=== PATIENT | male | born 1965 | race Caucasian/White ===

== ENCOUNTER 2022-02-09 10:00 | Inpatient (IN) | payer OTHER, SELFPAY ==
--- NOTE | 2022-02-09 | ECG_ITS ---
Test Reason : med clearance Blood Pressure : / mmHG Vent. Rate : 053 BPM Atrial Rate : 053 BPM P-R Int : 142 ms QRS Dur : 084 ms QT Int : 430 ms P-R-T Axes : 070 082 077 degrees QTc Int : 403 ms Sinus bradycardia Otherwise normal ECG No previous ECGs available Referred By: Vilma Cobb Electronically Signed By:YUMIKO RAY
--- NOTE | 2022-02-09 10:03 | ED_ITS ---
HPI - Psych General Chief Complaint: Psychiatric Symptoms Stated Complaint: STATEMENTS OF HI FROM SNF PER EMS Time Seen by Provider: 02/09/22 10:03 Source: patient Mode of arrival: EMS Limitations: no limitations History of Present Illness HPI Narrative: 56 yo male states he has schizophrenia and depression not on meds for unknown amount of time, he is homeless. Went to [facility] today stating he is HI - because the government wants him to be. He states he needs some help with his mental health MD complaint: feels depressed, homicidal ideation and anxiety Onset (ago): week(s) Duration: getting worse History of same: Yes Relieving factors: none Context: not taking psychiatric medications Associated psychiatric symptoms: depression and homicidal ideation Associated symptoms: denies other symptoms Treatments prior to arrival: none Related Data Home Medications Medication Instructions Recorded Confirmed gabapentin 600 mg tablet 1 tab PO TID 02/09/22 02/09/22 hydroxyzine HCl 50 mg tablet 1 tab PO BID 02/09/22 02/09/22 Allergies Allergy/AdvReac Type Severity Reaction Status Date / Time No Known Allergies Allergy Verified 02/09/22 10:47 Review of Systems Review of Systems: Constitutional : No Fever, No Chills ENT/Mouth : No Ear Pain, No Nasal Congestion, No sore throat Eyes: No Eye Pain, No Swelling, No Redness Cardiovascular : No Chest Pain, No SOB Respiratory : No Cough, No Sputum, No Dyspnea Gastrointestinal : No Nausea, No Vomiting, No Diarrhea, No Hematochezia, No Melena Genitourinary : No Dysuria, No Urinary Frequency, No Hematuria Musculoskeletal : No Myalgias Skin : No Skin Lesions, No rash Neuro : No Weakness, No Numbness, No Paresthesias, No Dizziness, No Headache Psych : positive Anxiety, positive Depression, no SI pos HI Heme/Lymph: No Lymphadenopathy Endocrine : No Polyuria, No Polydipsia All other systems reviewed and are negative [facility] Past Medical History Attestation statement: The following information was validated with the patient. Medical History Depression Schizophrenia Social History Social History Housing: Homeless Patient Tobacco Use Status: Current someday Tobacco user Substance Use Type: Marijuana Advance Directives: No Advance Directives Information Provided: No Physical Exam Vital Signs: Vital Signs: Last Vital Signs Temp 97.9 F 02/09/22 11:19 Pulse 56 02/09/22 11:19 Resp 16 02/09/22 11:19 BP 123/72 02/09/22 11:19 Pulse Ox 96 02/09/22 11:19 O2 Del Method 02/09/22 11:19 BMI result Body Mass Index 24.3 Appearance: Alert. Oriented X3. No acute distress. talking in circles about the government wanting him to kill people Eyes: Pupils equal, round and reactive to light. ENT: Pharynx normal. Neck: Normal inspection. Neck supple. CVS: Normal heart rate and rhythm. Pulses normal. Respiratory: No respiratory distress. Breath sounds normal. Abdomen: Soft and nontender. Skin: Skin warm and dry. Normal skin color. Normal skin turgor. Extremities: No lower extremity edema. No calf ttp Neuro: Oriented X 3. No motor deficit. No sensory deficit. CN2-12 intact. Course Course Course Narrative: Physician observation started at 425pm Patient placed in physician observation because the patient needed more time for placement he is a [facility] S12 bed search. At the time observation was started the patient's vitals were stable, patient is alert and oriented but slightly anxious, Neuro: nonfocal, CV RRR, Lungs clear MDM - Psych MDM Narrative Medical decision making narrative: 56 yo male with depression and schizophrenia here with c/o HI - mentions the government is out to get him. At this time will need labs, [facility] consult Lab Data Result diagrams: 02/09/22 12:57 02/09/22 12:57 Labs: Lab Results 02/09/22 02/09/22 02/09/22 Range/Units 11:50 11:50 12:57 WBC 10.9 H (4.8-10.8) X10*3/uL RBC 5.25 (4.60-5.80) X10*6/uL Hgb 15.9 (14.0-18.0) g/dl Hct 47.4 (42.0-52.0) % MCV 90.3 (80.0-98.0) fL MCH 30.3 (27.0-33.0) pg MCHC 33.5 (31.0-36.0) g/dl RDW 14.1 (11.0-16.0) % Plt Count 332 (160-400) X10*3/uL MPV 9.1 L (9.4-12.4) fL Immature Gran % (Auto) 0.4 (0.0-0.4) % Neut % (Auto) 60.3 (45-73) % Lymph % (Auto) 30.8 (20-40) % Maries % (Auto) 6.6 (2-11) % Eos % (Auto) 1.3 (0-4) % Baso % (Auto) 0.6 (0-2) % Lymph # (Auto) 3.4 (1.2-4.9) X10*3/uL Maries # (Auto) 0.7 (0.1-1.2) X10*3/uL Eos # (Auto) 0.1 (0.0-0.4) X10*3/uL Baso # (Auto) 0.1 (0.0-0.2) X10*3/uL Abs Immat Gran (auto) 0.04 H (0.00-0.03) X10*3/uL Absolute Neuts (auto) 6.6 (2.0-8.3) x10*3/uL Absolute Nucleated RBC 0.000 (0.0-0.012) X10*3/uL Nucleated RBC % (auto) 0.0 (0.0-0.2) /100WBC Sodium (135-145) mmol/L Potassium (3.3-5.1) mmol/L Chloride (96-108) mmol/L Carbon Dioxide (22-29) mmol/L Anion Gap (12-20) BUN (9-16) mg/dL Creatinine (0.5-1.4) mg/dL Estim Creat Clear Calc Estimated GFR Random Glucose (60-115) mg/dL Calcium (8.4-10.2) mg/dL Total Bilirubin (0.0-1.0) mg/dL Direct Bilirubin (0.0-0.5) mg/dL AST (5-37) U/L ALT (0-40) U/L Alkaline Phosphatase (39-117) U/L Total Protein (6.5-8.0) g/dL Albumin (3.5-5.0) g/dL Urine Opiates Screen Not Detected (Not Detect) Urine Fentanyl Screen Not Detected (Not Detect) Ur Barbiturates Screen Not Detected (Not Detect) Ur Phencyclidine Scrn Not Detected (Not Detect) Ur Amphetamines Screen Not Detected (Not Detect) U Benzodiazepines Scrn Not Detected (Not Detect) Urine Cocaine Screen Not Detected (Not Detect) U Marijuana (THC) Screen POSITIVE H (Not Detect) Ethyl Alcohol mg/dL COVID-19 (MAXIME) Negative (Negative) COVID-19 Clin Com See Note 02/09/22 Range/Units 12:57 WBC (4.8-10.8) X10*3/uL RBC (4.60-5.80) X10*6/uL Hgb (14.0-18.0) g/dl Hct (42.0-52.0) % MCV (80.0-98.0) fL MCH (27.0-33.0) pg MCHC (31.0-36.0) g/dl RDW (11.0-16.0) % Plt Count (160-400) X10*3/uL MPV (9.4-12.4) fL Immature Gran % (Auto) (0.0-0.4) % Neut % (Auto) (45-73) % Lymph % (Auto) (20-40) % Maries % (Auto) (2-11) % Eos % (Auto) (0-4) % Baso % (Auto) (0-2) % Lymph # (Auto) (1.2-4.9) X10*3/uL Maries # (Auto) (0.1-1.2) X10*3/uL Eos # (Auto) (0.0-0.4) X10*3/uL Baso # (Auto) (0.0-0.2) X10*3/uL Abs Immat Gran (auto) (0.00-0.03) X10*3/uL Absolute Neuts (auto) (2.0-8.3) x10*3/uL Absolute Nucleated RBC (0.0-0.012) X10*3/uL Nucleated RBC % (auto) (0.0-0.2) /100WBC Sodium 140 (135-145) mmol/L Potassium 4.3 (3.3-5.1) mmol/L Chloride 106 (96-108) mmol/L Carbon Dioxide 26 (22-29) mmol/L Anion Gap 12 (12-20) BUN 12 (9-16) mg/dL Creatinine 0.71 (0.5-1.4) mg/dL Estim Creat Clear Calc 116.1 Estimated GFR > 60 Random Glucose 91 (60-115) mg/dL Calcium 9.3 (8.4-10.2) mg/dL Total Bilirubin 0.6 (0.0-1.0) mg/dL Direct Bilirubin 0.2 (0.0-0.5) mg/dL AST 15 (5-37) U/L ALT 13 (0-40) U/L Alkaline Phosphatase 61 (39-117) U/L Total Protein 6.4 L (6.5-8.0) g/dL Albumin 4.0 (3.5-5.0) g/dL Urine Opiates Screen (Not Detect) Urine Fentanyl Screen (Not Detect) Ur Barbiturates Screen (Not Detect) Ur Phencyclidine Scrn (Not Detect) Ur Amphetamines Screen (Not Detect) U Benzodiazepines Scrn (Not Detect) Urine Cocaine Screen (Not Detect) U Marijuana (THC) Screen (Not Detect) Ethyl Alcohol < 10 mg/dL COVID-19 (MAXIME) (Negative) COVID-19 Clin Com Discharge Plan Discharge Clinical Impression: Homicidal ideation Patient Disposition: Still a Patient Prescriptions: No Action gabapentin 600 mg tablet 1 tab PO TID hydroxyzine HCl 50 mg tablet 1 tab PO BID
[2022-02-09 11:19] VITALS: BP 123/72; BP 138/80; PULSE 56; PULSE 74; RESP 16; TEMP 36.6; O2SAT 96; O2SAT 99; BMI 24.3
[2022-02-09 12:16] LABS: Amphetamine Screen Urine Not Detected (Not Detect); Barbiturates, Urine Not Detected (Not Detect); Benzodiazepines Screen Urine Not Detected (Not Detect); Cannabinoid Screen Urine POSITIVE (Not Detect); Cocaine Screen Urine Not Detected (Not Detect); Fentanyl, urine Not Detected (Not Detect); Opiate Screen Urine Not Detected (Not Detect); Phencyclidine Screen Urine Not Detected (Not Detect)
[2022-02-09 12:18] LABS: COVID-19 Test Negative (Negative)
[2022-02-09 13:00] LABS: MANUAL DIFF FLAG NO
[2022-02-09 13:10] LABS: Basophils Absolute Auto 0.1 X10*3/uL (0.0-0.2); Basophils Percent Auto 0.6 % (0-2); Eosinophils Absolute Auto 0.1 X10*3/uL (0.0-0.4); Eosinophils Percent Auto 1.3 % (0-4); Hematocrit 47.4 % (42.0-52.0); Hemoglobin 15.9 g/dl (14.0-18.0); Imm Gran Abs Auto 0.04 X10*3/uL (0.00-0.03); Imm Gran Pct Auto 0.4 % (0.0-0.4); Lymphocytes Absolute Auto 3.4 X10*3/uL (1.2-4.9); Lymphocytes Percent Auto 30.8 % (20-40); Mean Corpuscular HGB Conc 33.5 g/dl (31.0-36.0); Mean Corpuscular Hemoglobin 30.3 pg (27.0-33.0); Mean Corpuscular Volume 90.3 fL (80.0-98.0); Mean Platelet Volume 9.1 fL (9.4-12.4); Monocytes Absolute Auto 0.7 X10*3/uL (0.1-1.2); Monocytes Percent Auto 6.6 % (2-11); Neutrophils Absolute Auto 6.6 x10*3/uL (2.0-8.3); Neutrophils Percent Auto 60.3 % (45-73); Platelet Count 332 X10*3/uL (160-400); Red Blood Count 5.25 X10*6/uL (4.60-5.80); Red Cell Distribution Width 14.1 % (11.0-16.0); White Blood Count 10.9 X10*3/uL (4.8-10.8)
[2022-02-09 13:20] LABS: Alanine Aminotransferase 13 U/L (0-40); Alkaline Phosphatase 61 U/L (39-117); Anion Gap 12 (12-20); Aspartate Amino Transferase 15 U/L (5-37); Bilirubin Direct 0.2 mg/dL (0.0-0.5); Bilirubin Total 0.6 mg/dL (0.0-1.0); Blood Urea Nitrogen 12 mg/dL (9-16); Calcium 9.3 mg/dL (8.4-10.2); Carbon Dioxide 26 mmol/L (22-29); Chloride 106 mmol/L (96-108); Creatinine Clr Calc Pharmacy 116.1; Estimated Glomerular Filt Rate > 60; Ethanol < 10 mg/dL; Glucose Random 91 mg/dL (60-115); Potassium 4.3 mmol/L (3.3-5.1); Sodium 140 mmol/L (135-145); Total Protein 6.4 g/dL (6.5-8.0)
--- NOTE | 2022-02-09 14:13 | PC.NURSE ---
MONET met with patient who was laying down upon initial interaction. Patient sat up and engaged in conversation with MONET. Patient stated he was very angry, just angry and he wants to leave this country . MONET provided patient with packet that included daily chronicle, word search, coloring pages, and also relaxation exercises. MONET discussed leaves on a stream and coping skills for anxiety with patient. Patient accepted packet and appeared to enjoy conversation. MONET asked patient if there was anything else he needed to which he replied no. Patient stated he would look at worksheets after lunch.
[2022-02-09] MEDS: Gabapentin 600 MG TABLET PO ×2 (15:11→19:59)
[2022-02-09] MEDS: Nicotine 21 MG PATCH.TD24 TRANSDERMA (15:24)
[2022-02-09] MEDS: hydrOXYzine HCL 50 MG TABLET PO (19:59)
[2022-02-09 23:16] VITALS: BMI 20.8
[2022-02-09 23:17] VITALS: BP 136/72; PULSE 56; TEMP 36.7; O2SAT 96
[2022-02-09 23:47] VITALS: BMI 20.7
--- NOTE | 2022-02-10 00:32 | PC.ADMIT ---
Pt is a 56 year old male admitted on CV for increasing HI. Pt states, the government is trying to make me hurt someone, people are trying to poison me . Pt is alert and oriented X3, Covid negative, tox screen positive for THC. Pt denies SI/HI/VH at the moment. Pt had been non-medication compliant for some time. Pt has poor eye contact though pleasant and cooperative. Speech is coarse and Pt drifts off topic at times. Pt endorses anxiety and depression. Pt is paranoid about the government and states, 'wants to leave the country . Pt is homeless and seeks housing. Admission orders obtained.
[2022-02-10 06:00] VITALS: BP 131/78; PULSE 54; RESP 18; TEMP 36.4; O2SAT 96
[2022-02-10 08:59] LABS: Alanine Aminotransferase 12 U/L (0-40); Albumin Level 4.2 g/dL (3.5-5.0); Alkaline Phosphatase 64 U/L (39-117); Anion Gap 14 (12-20); Aspartate Amino Transferase 13 U/L (5-37); Bilirubin Total 0.3 mg/dL (0.0-1.0); Blood Urea Nitrogen 9 mg/dL (9-16); Calcium 9.6 mg/dL (8.4-10.2); Carbon Dioxide 27 mmol/L (22-29); Chloride 105 mmol/L (96-108); Cholesterol 170 mg/dL; Creatinine Clr Calc Pharmacy 92.1; Estimated Glomerular Filt Rate > 60; Glucose Fasting 110 mg/dL (60-99); HDL Cholesterol 40 mg/dL; LDL Cholesterol Calculated 111 mg/dl; Potassium 4.7 mmol/L (3.3-5.1); Sodium 141 mmol/L (135-145); Total Protein 6.7 g/dL (6.5-8.0); Triglycerides 96 mg/dL
[2022-02-10 09:20] LABS: Thyroid Stimulating Hormone 1.02 uIU/mL (0.32-4.0)
[2022-02-10 09:37] LABS: Folate 14.8 ng/mL (> or = 4.0); Vitamin B12 394 pg/mL (200-900)
--- NOTE | 2022-02-10 09:51 | HO.PSYADMNOT ---
HPI Date of Service: 02/10/22 Chief Complaint: PARANOIA Agitation Sources of Information: patient interviewed, chart reviewed and crisis/core team assessment reviewed HPI Subjective Notes: Hewitt Warning and Conditional Voluntary Guardianship: No Narrative: The patient allegedly had initially gone to [facility] and then was reportedly sent to the [facility]. He presented to the [facility] with reported homicidal thoughts reportedly no clear plan related to multiple paranoid concerns about the government and other people and that somehow he was being harmed. He has had concerns reportedly about being poisoned things injected into his body. The patient has reportedly been on hydroxyzine 50 mg twice a day as needed for anxiety gabapentin 600 t.i.d. reportedly for back pain. He states he is treated at [facility] he reportedly has not been on any antipsychotic medication for an extended period of time and none is on med reconciliation. Patient states he does not take any crazy medication. The patient gives a chaotic and disorganized history he reportedly has been diagnosed with the schizophrenia he states he is homeless and has been going from 1 place to another including reportedly [facility] and [facility]. He states he cannot take it anymore rambling and rapid discourse about somehow people harming him in different ways doing things to his body and has felt he may need to protect himself and reportedly made statements that someone the government is trying to make him hurt someone. Patient denied a history of violence. Past Psychiatric History: History of multiple reported hospitalizations for paranoia questionable history of jeremy and psychosis. Unclear regarding treatment. Medical Evaluation Reviewed: Yes Patient does have reportedly past head injuries. Complains of being damage to his private parts and testicles but cannot give any coherent history or symptoms. Was reportedly examined in the emergency room and nothing noted [facility], [facility] Medical History (Updated 02/10/22 @ 17:25 by Enrike Torres MD) Depression Schizophrenia Narrative: Patient states history past head injuries chronic back pain Family History: Unknown at this time Social History: Reportedly grew up in [place] he states he does have disability lives in different shelters and does have food stamps. He states he is currently homeless does use [facility] Patient does have sister involved Michelle telephone [phone] his mother Allison [phone] Substance History: Reportedly regularly taking marijuana past history opiate use reportedly last 2018 reported intermittent occasional use of cocaine Trauma History: Reported history of physical trauma Diagnostics Vital Signs (24Hr): Vital Signs - 24 hr 02/09/22 11:19 02/09/22 23:17 Temperature 97.9 F 98.1 F Pulse Rate 56 56 Respiratory Rate 16 Blood Pressure 123/72 136/72 Pulse Oximetry 96 96 Oxygen Delivery Method Room Air Room Air BMI result Body Mass Index 20.7 Labs Results: 02/09/22 12:57 02/10/22 08:32 Labs: Laboratory Results - last 48 hr 02/09/22 02/09/22 02/09/22 11:50 11:50 12:57 WBC 10.9 H RBC 5.25 Hgb 15.9 Hct 47.4 MCV 90.3 MCH 30.3 MCHC 33.5 RDW 14.1 Plt Count 332 MPV 9.1 L Immature Gran % (Auto) 0.4 Neut % (Auto) 60.3 Lymph % (Auto) 30.8 Valley % (Auto) 6.6 Eos % (Auto) 1.3 Baso % (Auto) 0.6 Lymph # (Auto) 3.4 Valley # (Auto) 0.7 Eos # (Auto) 0.1 Baso # (Auto) 0.1 Abs Immat Gran (auto) 0.04 H Absolute Neuts (auto) 6.6 Absolute Nucleated RBC 0.000 Nucleated RBC % (auto) 0.0 Sodium Potassium Chloride Carbon Dioxide Anion Gap BUN Creatinine Estim Creat Clear Calc Estimated GFR Random Glucose Fasting Glucose Calcium Total Bilirubin Direct Bilirubin AST ALT Alkaline Phosphatase Total Protein Albumin Triglycerides Cholesterol LDL Cholesterol, Calc HDL Cholesterol Vitamin B12 Folate TSH Urine Opiates Screen Not Detected Urine Fentanyl Screen Not Detected Ur Barbiturates Screen Not Detected Ur Phencyclidine Scrn Not Detected Ur Amphetamines Screen Not Detected U Benzodiazepines Scrn Not Detected Urine Cocaine Screen Not Detected U Marijuana (THC) Screen POSITIVE H Ethyl Alcohol COVID-19 (MAXIME) Negative COVID-19 Clin Com See Note 02/09/22 02/10/22 02/10/22 12:57 08:32 08:32 WBC RBC Hgb Hct MCV MCH MCHC RDW Plt Count MPV Immature Gran % (Auto) Neut % (Auto) Lymph % (Auto) Valley % (Auto) Eos % (Auto) Baso % (Auto) Lymph # (Auto) Valley # (Auto) Eos # (Auto) Baso # (Auto) Abs Immat Gran (auto) Absolute Neuts (auto) Absolute Nucleated RBC Nucleated RBC % (auto) Sodium 140 141 Potassium 4.3 4.7 Chloride 106 105 Carbon Dioxide 26 27 Anion Gap 12 14 BUN 12 9 Creatinine 0.71 0.76 Estim Creat Clear Calc 116.1 92.1 Estimated GFR > 60 > 60 Random Glucose 91 Fasting Glucose 110 H Calcium 9.3 9.6 Total Bilirubin 0.6 0.3 Direct Bilirubin 0.2 AST 15 13 ALT 13 12 Alkaline Phosphatase 61 64 Total Protein 6.4 L 6.7 Albumin 4.0 4.2 Triglycerides 96 Cholesterol 170 LDL Cholesterol, Calc 111 HDL Cholesterol 40 Vitamin B12 394 Folate 14.8 TSH 1.02 Urine Opiates Screen Urine Fentanyl Screen Ur Barbiturates Screen Ur Phencyclidine Scrn Ur Amphetamines Screen U Benzodiazepines Scrn Urine Cocaine Screen U Marijuana (THC) Screen Ethyl Alcohol < 10 COVID-19 (MAXIME) COVID-19 Clin Com Meds/Allergies Meds Home Medications Medication Instructions Recorded Confirmed Type gabapentin 600 mg tablet 1 tab PO TID 02/09/22 02/09/22 History hydroxyzine HCl 50 mg tablet 1 tab PO BID 02/09/22 02/09/22 History Allergies Allergies Allergy/AdvReac Type Severity Reaction Status Date / Time No Known Allergies Allergy Verified 02/09/22 10:47 Mental Status Exam Mental Status Exam Patient Appearance: Disheveled Patient Orientation: Person and Situation Level of Consciousness: Awake Patient Behavior: Talkative, Suspicious, Swearing and Anxious Mood Description: Anxious, Labile, Angry and Apprehensive Affect Description: Anxious, Labile and Apprehensive Patient Cognition Impaired: Yes Ability to Follow Directions: Fair Speech Pattern: Rambling and Excessive Delusions: Paranoid Ideation and Bizarre (Bizarre delusions somatic bizarre concerns) Thought Process: Rumination Thought Content: positive for Flight of Ideas, positive for Hypochondriasis, negative for Suicidal Ideation or positive for Homicidal Ideation (Thoughts he might after protect himself denied current plan or intent to harm anyone) Abnormal Motor Activity Signs and Symptoms: Agitation Judgement: Poor Judgement and Insight: Preoccupation with conspiracy of Jews gays being poisoned I do not take any crazy medication Assessment & Plan Assessment & Plan (1) Schizoaffective disorder, bipolar type: Status: Acute Code(s): F25.0 - Schizoaffective disorder, bipolar type Plan Try and develop therapeutic relationship assess safety hewitt warning given. Patient may need treatment order he apparently is chronically psychotic but has been increasingly paranoid psychotic agitated need to SF safety to himself and others Patient educated on: diagnosis and medication risk/benefits Informed Consent: further education needed Reason for continued inpatient stay Substantial Risk for: harm to others, inability to function, rapid decompensation and med/psych decompensation
[2022-02-10] MEDS: Gabapentin 600 MG TABLET PO ×3 (10:23→22:20)
[2022-02-10] MEDS: Acetaminophen 325 MG TABLET 650 MG PO ×2 (10:31→22:30)
[2022-02-10] MEDS: Nicotine 21 MG PATCH.TD24 TRANSDERMA (11:20)
[2022-02-10] MEDS: hydrOXYzine HCL 25 MG TABLET PO (14:32)
--- NOTE | 2022-02-10 15:08 | MHC.CLN ---
NUTRITION PATIENT WITH NORMAL BMI=20.7. 89% IBW. STAFF REPORTS THAT PATIENT IS EATING WELL. NO ADDITIONAL NUTRITION INTERVENTIONS.
[2022-02-10 22:17] VITALS: BP 153/81; PULSE 60; RESP 18; TEMP 36.2; O2SAT 97
[2022-02-11 06:00] VITALS: BP 106/70; PULSE 66; RESP 16; TEMP 36.6; O2SAT 97
[2022-02-11 07:00] VITALS: BMI 21.4
[2022-02-11] MEDS: Gabapentin 600 MG TABLET PO ×3 (08:58→21:05)
[2022-02-11] MEDS: Acetaminophen 325 MG TABLET 650 MG PO ×2 (08:58→17:07)
[2022-02-11] MEDS: hydrOXYzine HCL 25 MG TABLET PO ×2 (09:10→15:57)
[2022-02-11] MEDS: Nicotine 21 MG PATCH.TD24 TRANSDERMA (10:04)
--- NOTE | 2022-02-11 14:54 | P.PNPSI_ITS ---
Subjective Subjective Date of Service: 02/11/22 Reason For Visit: PARANOIA Agitation Interim History: calm, cooperative. makes some paranoid references. declines neuroleptics. ultimately somewhat irritable and ends interview unilaterally by walking out of the interview room. MD informs pt MD plans to Rx meds and pt may take them or not. pt acknowledges MDs statement. pt states he is working with SW on housing. Mental Status Exam Mental Status Exam Narrative: adequately dressed and groomed. cooperative. no PMA/PMR. speech nml in rate, amount, tone, latency. soft-spoken. thoughts moderately disorganized and expressive of paranoid delusions. affect constricted, normo-intense, non- labile. mood not assessed. no SI/HI/AVH expressed. Diagnostics Vital Signs (24Hr): Vital Signs - 24 hr 02/10/22 22:17 02/11/22 06:00 Temperature 97.2 F 97.8 F Pulse Rate 60 66 Respiratory Rate 18 16 Blood Pressure 153/81 H 106/70 Pulse Oximetry 97 97 Oxygen Delivery Method Room Air Room Air BMI result Body Mass Index 20.7 Labs Results: 02/09/22 12:57 02/10/22 08:32 Labs: Laboratory Results - last 48 hr 02/10/22 02/10/22 08:32 08:32 Sodium 141 Potassium 4.7 Chloride 105 Carbon Dioxide 27 Anion Gap 14 BUN 9 Creatinine 0.76 Estim Creat Clear Calc 92.1 Estimated GFR > 60 Fasting Glucose 110 H Calcium 9.6 Total Bilirubin 0.3 AST 13 ALT 12 Alkaline Phosphatase 64 Total Protein 6.7 Albumin 4.2 Triglycerides 96 Cholesterol 170 LDL Cholesterol, Calc 111 HDL Cholesterol 40 Vitamin B12 394 Folate 14.8 TSH 1.02 Medications Medications Current Medications Acetaminophen (Acetaminophen 325 Mg Tablet) 650 mg PO Q6H PRN PRN Reason: Headache/Pain Mild Scale (1-3) Last Admin: 02/11/22 08:58 Dose: 650 mg Al Hydroxide/Mg Hydroxide (Magnesium Hydrox/Alum Hydrox 30 Ml Oral.Susp) 30 ml PO Q6H PRN PRN Reason: Heartburn/Nausea Gabapentin (Gabapentin 600 Mg Tablet) 600 mg PO TID JESUS Last Admin: 02/11/22 08:58 Dose: 600 mg Hydroxyzine HCl (Hydroxyzine Hcl 25 Mg Tablet) 25 mg PO Q6H PRN PRN Reason: anxiety/restlessness Last Admin: 02/11/22 09:10 Dose: 25 mg Magnesium Hydroxide (Milk Of Magnesia 30 Ml Oral.Susp) 30 ml PO DAILY PRN PRN Reason: Constipation Nicotine (Nicotine 21 Mg Patch.Td24) 21 mg TRANSDERMA DAILY JESUS Last Admin: 02/11/22 10:04 Dose: 21 mg Risperidone (Risperidone 0.5 Mg Tablet) 0.5 mg PO Q4H PRN PRN Reason: Psychosis Trazodone HCl (Trazodone Hcl 50 Mg Tablet) 50 mg PO BEDTIME PRN PRN Reason: Insomnia Allergies Allergies Allergy/AdvReac Type Severity Reaction Status Date / Time No Known Allergies Allergy Verified 02/09/22 10:47 Assessment & Plan Assessment & Plan (1) Schizoaffective disorder, bipolar type: Status: Acute Code(s): F25.0 - Schizoaffective disorder, bipolar type Plan Try and develop therapeutic relationship assess safety lamas warning given. Patient may need treatment order he apparently is chronically psychotic but has been increasingly paranoid psychotic agitated need to SF safety to himself and others. 02/11: start scheduled abilify 5 mg daily. pt likely to decline, but medication should be offered. I spent ___25___ minutes with the patient and/or on the patient floor today, greater than?50% of which was spent counseling/coordinating care. Reason for contiued inpatient stay Substantial Risk for: harm to others and inability to function
[2022-02-11] MEDS: risperiDONE 0.5 MG TABLET PO (17:08)
[2022-02-11 21:09] VITALS: BP 129/73; PULSE 52; RESP 18; TEMP 36.1; O2SAT 97
[2022-02-12] MEDS: Nicotine 21 MG PATCH.TD24 TRANSDERMA (09:09)
[2022-02-12] MEDS: Gabapentin 600 MG TABLET PO ×3 (09:10→21:18)
[2022-02-12 10:24] VITALS: BP 122/68; PULSE 55; TEMP 36.6; O2SAT 97
[2022-02-12] MEDS: hydrOXYzine HCL 25 MG TABLET PO (14:42)
--- NOTE | 2022-02-12 17:25 | P.PNPSI_ITS ---
Subjective Subjective Date of Service: 02/12/22 Reason For Visit: PARANOIA Agitation Subjective Notes: Hewitt Warning Interim History: I spoke with pt's team and evaluated him this evening. He is disorganized, making bizarre statements, paranoid. Says he is very upset, difficult to follow him in conversation, flight of ideas. Makes statements about having cavities fixed, I do not want to stay in this country, wants to go back to [place], somewhere in [place], they dont care about me or my yazdanism. Says his anxiety is high, he is very upset, disgusted. Identifies being upset with the whole government, whole situation, then points to T/W and says you fund those fucking guys, the gays Wilder Dukes, starts talking about [employer], again points at T/W. Also says Im gonna kill someone, You are extorting people, If I see them around, im gonna slice their necks, when asked who he is talking about he says Brett Castano and their kids. Pt unable to say if he feels safe. Refuses medication. Medication Compliance: No Attending Groups: No Review of Systems Acute medical concerns: No Medical Review of Systems: unchanged Mental Status Exam Mental Status Exam Narrative: adequately dressed and groomed.? cooperative.? no PMA/PMR.? speech nml in rate, amount, tone, latency.? soft-spoken.? thoughts moderately disorganized and expressive of paranoid delusions.? affect constricted, normo-intense, non- labile.? mood not assessed.? no SI/HI/AVH expressed. Diagnostics Vital Signs (24Hr): Vital Signs - 24 hr 02/11/22 21:09 02/12/22 10:24 Temperature 97.0 F 97.8 F Pulse Rate 52 55 Respiratory Rate 18 Blood Pressure 129/73 122/68 Pulse Oximetry 97 97 Oxygen Delivery Method Room Air Room Air BMI result Body Mass Index 21.4 Labs Results: 02/09/22 12:57 02/10/22 08:32 Medications Medications Current Medications Acetaminophen (Acetaminophen 325 Mg Tablet) 650 mg PO Q6H PRN PRN Reason: Headache/Pain Mild Scale (1-3) Last Admin: 02/11/22 17:07 Dose: 650 mg Al Hydroxide/Mg Hydroxide (Magnesium Hydrox/Alum Hydrox 30 Ml Oral.Susp) 30 ml PO Q6H PRN PRN Reason: Heartburn/Nausea Aripiprazole (Aripiprazole 5 Mg Tablet) 5 mg PO DAILY [facility] Last Admin: 02/12/22 09:13 Dose: Not Given Gabapentin (Gabapentin 600 Mg Tablet) 600 mg PO TID [facility] Last Admin: 02/12/22 14:42 Dose: 600 mg Hydroxyzine HCl (Hydroxyzine Hcl 25 Mg Tablet) 25 mg PO Q6H PRN PRN Reason: anxiety/restlessness Last Admin: 02/12/22 14:42 Dose: 25 mg Magnesium Hydroxide (Milk Of Magnesia 30 Ml Oral.Susp) 30 ml PO DAILY PRN PRN Reason: Constipation Nicotine (Nicotine 21 Mg Patch.Td24) 21 mg TRANSDERMA DAILY [facility] Last Admin: 02/12/22 09:09 Dose: 21 mg Risperidone (Risperidone 0.5 Mg Tablet) 0.5 mg PO Q4H PRN PRN Reason: Psychosis Last Admin: 02/11/22 17:08 Dose: 0.5 mg Trazodone HCl (Trazodone Hcl 50 Mg Tablet) 50 mg PO BEDTIME PRN PRN Reason: Insomnia Allergies Allergies Allergy/AdvReac Type Severity Reaction Status Date / Time No Known Allergies Allergy Verified 02/09/22 10:47 Assessment & Plan Assessment & Plan (1) Schizoaffective disorder, bipolar type: Status: Acute Code(s): F25.0 - Schizoaffective disorder, bipolar type Plan Try and develop therapeutic relationship assess safety hewitt warning given. Patient may need treatment order he apparently is chronically psychotic but has been increasingly paranoid psychotic agitated need to SF safety to himself and others. 02/11: start scheduled abilify 5 mg daily. pt likely to decline, but medication should be offered. 02/12: Pt med non-adherent, making verbal threats, HI threats, poor insight I spent minutes with the patient and/or on the patient floor today, greater than?50% of which was spent counseling/coordinating care. Patient educated on: diagnosis, medication risk/benefits and therapeutic strategies Reason for contiued inpatient stay Substantial Risk for: harm to others, rapid decompensation and med/psych decompensation
[2022-02-12 21:20] VITALS: BP 128/83; PULSE 85; RESP 18; TEMP 36.6; O2SAT 96
[2022-02-13] MEDS: Nicotine 21 MG PATCH.TD24 TRANSDERMA (08:10)
[2022-02-13] MEDS: Acetaminophen 325 MG TABLET 650 MG PO (08:11)
[2022-02-13] MEDS: Gabapentin 600 MG TABLET PO ×3 (08:11→21:07)
--- NOTE | 2022-02-13 09:28 | HO.PSYCHPN ---
Subjective Subjective Date of Service: 02/13/22 Reason For Visit: PARANOIA Agitation Subjective Notes: Conditional Voluntary Healthcare Proxy: No Guardianship: No Interim History: Patient was seen and discussed in rounds today. Records and plans were reviewed. He has been pleasant but continues to be tangential and having self dialogue. Anxious at times. Possibly delusional. No complaints or side effects. Eating and sleeping adequately. No changes were made today Medication Compliance: Yes Side effects from medications: No Attending Groups: Yes Review of Systems Review of Systems Yes all other systems are reviewed and are negative Mental Status Exam Mental Status Exam Narrative: In today's visit he is alert, oriented and pleasant. Normal speech. Little eye contact. Affect is constricted. Some paranoia is reported and present. No auditory or visual hallucinations. No suicidal or homicidal ideations today. He had expressed these in the past. Cognitively he is tangential. Insight is minimal. Judgment is mostly intact Diagnostics Vital Signs (24Hr): Vital Signs - 24 hr 02/12/22 10:24 02/12/22 21:20 Temperature 97.8 F 97.9 F Pulse Rate 55 85 Respiratory Rate 18 Blood Pressure 122/68 128/83 Pulse Oximetry 97 96 Oxygen Delivery Method Room Air Room Air BMI result Body Mass Index 21.4 Labs Results: 02/09/22 12:57 02/10/22 08:32 Medications Medications Current Medications Acetaminophen (Acetaminophen 325 Mg Tablet) 650 mg PO Q6H PRN PRN Reason: Headache/Pain Mild Scale (1-3) Last Admin: 02/13/22 08:11 Dose: 650 mg Al Hydroxide/Mg Hydroxide (Magnesium Hydrox/Alum Hydrox 30 Ml Oral.Susp) 30 ml PO Q6H PRN PRN Reason: Heartburn/Nausea Aripiprazole (Aripiprazole 5 Mg Tablet) 5 mg PO DAILY [facility] Last Admin: 02/13/22 08:12 Dose: Not Given Gabapentin (Gabapentin 600 Mg Tablet) 600 mg PO TID [facility] Last Admin: 02/13/22 08:11 Dose: 600 mg Hydroxyzine HCl (Hydroxyzine Hcl 25 Mg Tablet) 25 mg PO Q6H PRN PRN Reason: anxiety/restlessness Last Admin: 02/12/22 14:42 Dose: 25 mg Magnesium Hydroxide (Milk Of Magnesia 30 Ml Oral.Susp) 30 ml PO DAILY PRN PRN Reason: Constipation Nicotine (Nicotine 21 Mg Patch.Td24) 21 mg TRANSDERMA DAILY [facility] Last Admin: 02/13/22 08:10 Dose: 21 mg Risperidone (Risperidone 0.5 Mg Tablet) 0.5 mg PO Q4H PRN PRN Reason: Psychosis Last Admin: 02/11/22 17:08 Dose: 0.5 mg Trazodone HCl (Trazodone Hcl 50 Mg Tablet) 50 mg PO BEDTIME PRN PRN Reason: Insomnia Allergies Allergies Allergy/AdvReac Type Severity Reaction Status Date / Time No Known Allergies Allergy Verified 02/09/22 10:47 Assessment & Plan Assessment & Plan (1) Schizoaffective disorder, bipolar type: Status: Acute Code(s): F25.0 - Schizoaffective disorder, bipolar type Plan Try and develop therapeutic relationship assess safety lamas warning given. Patient may need treatment order he apparently is chronically psychotic but has been increasingly paranoid psychotic agitated need to SF safety to himself and others. 02/11: start scheduled abilify 5 mg daily. pt likely to decline, but medication should be offered. 02/12: Pt med non-adherent, making verbal threats, HI threats, poor insight 02/13: Continue current regimen and plans I spent minutes with the patient and/or on the patient floor today, greater than?50% of which was spent counseling/coordinating care. Reason for contiued inpatient stay Substantial Risk for: med/psych decompensation
[2022-02-13 10:33] VITALS: BP 123/75; PULSE 59; RESP 14; TEMP 36.2; O2SAT 99
[2022-02-13] MEDS: hydrOXYzine HCL 25 MG TABLET PO (11:24)
[2022-02-13 20:30] VITALS: BP 136/81; PULSE 65; RESP 16; TEMP 36.3; O2SAT 97
--- NOTE | 2022-02-14 08:36 | P.CNHOSGPS_ITS ---
History of Present Illness Data of Consult Service Date: 02/14/22 Requesting physician: Alex Steele Primary Care Provider: Rebeca Hassan NP HPI Scrotal swelling Review of Systems Review of Systems: denies trauma to scrotum Denies scrotal pain denies fever chills PMFSH Medical History Depression Schizophrenia Social History Household Members: None Housing: Homeless Do you presently have visiting nurse or other home services: No Patient Tobacco Use Status: Current everyday Tobacco user Tobacco use type: Cigarette Cigarette Packs Per Day: 1 Cigarettes Per Day: 20.0 Smoked in Last 30 Days: Yes e-Cigarette/Vaping Use: Currently Using Patient Interested in Nicotine Replacement: Yes Patient Given Instructions on How to Stop Smoking: Yes Date Education Initiated: 02/09/22 Second Hand Smoke Exposure: No Substance Use Type: Marijuana Substance Use Frequency: Daily Last Used Substance: Days (ago) Currently Displaying Signs/Symptoms of Drug Intoxication Withdrawal: No Any prior treatment program specific to substance use: No Have you been hit, kicked, punched, or otherwise hurt by someone within the past year? If so, by whom?: No Do you feel safe in your current relationship?: No Current Relationship Is there a partner from a previous relationship who is making you feel unsafe now?: No Are you made to feel afraid or neglected: No Spiritual Healthcare Practices: N/A Pentecostalism Healthcare Practices: N/A Cultural Healthcare Practices: N/A Advance Directives: No Advance Directives Information Provided: No Do you have thoughts of harming others: None Do you have a plan to hurt others: No Plan Recently lost weight without trying: No How much weight loss: Not applicable Eating poorly because of decreased appetite: No Nutrition screen score: 0 Nutrition Risks: No Nutritional Risk Poor oral hygiene: No Sexual orientation: Did not discuss. Meds Allergies Allergy/AdvReac Type Severity Reaction Status Date / Time No Known Allergies Allergy Verified 02/09/22 10:47 Active Medications: Current Medications Acetaminophen (Acetaminophen 325 Mg Tablet) 650 mg PO Q6H PRN PRN Reason: Headache/Pain Mild Scale (1-3) Last Admin: 02/13/22 08:11 Dose: 650 mg Al Hydroxide/Mg Hydroxide (Magnesium Hydrox/Alum Hydrox 30 Ml Oral.Susp) 30 ml PO Q6H PRN PRN Reason: Heartburn/Nausea Aripiprazole (Aripiprazole 5 Mg Tablet) 5 mg PO DAILY [facility] Last Admin: 02/13/22 08:12 Dose: Not Given Gabapentin (Gabapentin 600 Mg Tablet) 600 mg PO TID [facility] Last Admin: 02/13/22 21:07 Dose: 600 mg Hydroxyzine HCl (Hydroxyzine Hcl 25 Mg Tablet) 25 mg PO Q6H PRN PRN Reason: anxiety/restlessness Last Admin: 02/13/22 11:24 Dose: 25 mg Magnesium Hydroxide (Milk Of Magnesia 30 Ml Oral.Susp) 30 ml PO DAILY PRN PRN Reason: Constipation Nicotine (Nicotine 21 Mg Patch.Td24) 21 mg TRANSDERMA DAILY [facility] Last Admin: 02/13/22 08:10 Dose: 21 mg Risperidone (Risperidone 0.5 Mg Tablet) 0.5 mg PO Q4H PRN PRN Reason: Psychosis Last Admin: 02/11/22 17:08 Dose: 0.5 mg Trazodone HCl (Trazodone Hcl 50 Mg Tablet) 50 mg PO BEDTIME PRN PRN Reason: Insomnia Home Medications Medication Instructions Recorded Confirmed Last Taken Type gabapentin 600 mg tablet 1 tab PO TID 02/09/22 02/09/22 02/09/22 08:00 History hydroxyzine HCl 50 mg tablet 1 tab PO BID 02/09/22 02/09/22 02/09/22 08:00 History Results Labs CBC and Chem 7: 02/09/22 12:57 02/10/22 08:32 Assessment and Plan (1) Left hydrocele: Status: Acute Plan 56-year-old male with scrotal swelling which he states has been present for years . States he was scheduled to have this drained several years ago however lost his insurance. Currently he describes as annoying but not painful 1.Chronic left hydrocele - no further workup needed at this time; can be referred to Urology upon discharge Thanks for the consult. Call if further issues. Physical Exam Vital Signs: Last Vital Signs Temp 97.3 F 02/13/22 20:30 Pulse 65 02/13/22 20:30 Resp 16 02/13/22 20:30 BP 136/81 02/13/22 20:30 Pulse Ox 97 02/13/22 20:30 O2 Del Method 02/13/22 20:30 BMI result Body Mass Index 21.4 Const Other: cooperative/interactive Resp Other: clear to auscultation bilaterally no rales rhonchi or wheezes Cardio Other: no S4; positive S1-S2; no S3 murmurs rubs gallops Other: moderate left hydrocele; no appreciable left inguinal hernia Neuro Other: cranial nerves 2-12 grossly intact as tested. Motor is 5/5 all extremities. Sensation is intact. Answers questions appropriately related to his hydrocele Cranial nerves: Yes CN's II-XII intact bilaterally
[2022-02-14] MEDS: Nicotine 21 MG PATCH.TD24 TRANSDERMA (08:43)
[2022-02-14] MEDS: Gabapentin 600 MG TABLET PO ×3 (08:44→20:04)
[2022-02-14] MEDS: hydrOXYzine HCL 25 MG TABLET PO ×2 (09:07→20:04)
--- NOTE | 2022-02-14 09:07 | HO.PSYCHPN ---
Subjective Subjective Date of Service: 02/14/22 Reason For Visit: PARANOIA Agitation Subjective Notes: Conditional Voluntary Healthcare Proxy: No Guardianship: No Medical Problems Affecting Mental Status: No Interim History: Patient was seen and discussed in rounds today. Records and plans were reviewed. He continues to be mostly isolative. Eating and sleeping adequately. He does appear to respond to internal stimuli. He continues to be delusional and paranoid. He was seen today by the hospitalist because of his scrotal complaint which was addressed. No other complaints. No side effects. No changes were made today Medication Compliance: Yes Side effects from medications: No Attending Groups: Yes Review of Systems Review of Systems denies trauma to scrotum Denies scrotal pain denies fever chills Yes all other systems are reviewed and are negative Diagnostics Vital Signs (24Hr): Vital Signs - 24 hr 02/13/22 10:33 02/13/22 20:30 Temperature 97.2 F 97.3 F Pulse Rate 59 65 Respiratory Rate 14 16 Blood Pressure 123/75 136/81 Pulse Oximetry 99 97 Oxygen Delivery Method Room Air Room Air BMI result Body Mass Index 21.4 Labs Results: 02/09/22 12:57 02/10/22 08:32 Medications Medications Current Medications Acetaminophen (Acetaminophen 325 Mg Tablet) 650 mg PO Q6H PRN PRN Reason: Headache/Pain Mild Scale (1-3) Last Admin: 02/13/22 08:11 Dose: 650 mg Al Hydroxide/Mg Hydroxide (Magnesium Hydrox/Alum Hydrox 30 Ml Oral.Susp) 30 ml PO Q6H PRN PRN Reason: Heartburn/Nausea Aripiprazole (Aripiprazole 5 Mg Tablet) 5 mg PO DAILY [facility] Last Admin: 02/14/22 08:45 Dose: Not Given Gabapentin (Gabapentin 600 Mg Tablet) 600 mg PO TID [facility] Last Admin: 02/14/22 08:44 Dose: 600 mg Hydroxyzine HCl (Hydroxyzine Hcl 25 Mg Tablet) 25 mg PO Q6H PRN PRN Reason: anxiety/restlessness Last Admin: 02/13/22 11:24 Dose: 25 mg Magnesium Hydroxide (Milk Of Magnesia 30 Ml Oral.Susp) 30 ml PO DAILY PRN PRN Reason: Constipation Nicotine (Nicotine 21 Mg Patch.Td24) 21 mg TRANSDERMA DAILY [facility] Last Admin: 02/14/22 08:43 Dose: 21 mg Risperidone (Risperidone 0.5 Mg Tablet) 0.5 mg PO Q4H PRN PRN Reason: Psychosis Last Admin: 02/11/22 17:08 Dose: 0.5 mg Trazodone HCl (Trazodone Hcl 50 Mg Tablet) 50 mg PO BEDTIME PRN PRN Reason: Insomnia Allergies Allergies Allergy/AdvReac Type Severity Reaction Status Date / Time No Known Allergies Allergy Verified 02/09/22 10:47 Assessment & Plan Assessment & Plan (1) Left hydrocele: Status: Acute Code(s): N43.3 - Hydrocele, unspecified Plan 56-year-old male with scrotal swelling which he states has been present for years . States he was scheduled to have this drained several years ago however lost his insurance. Currently he describes as annoying but not painful 1.Chronic left hydrocele - no further workup needed at this time; can be referred to Urology upon discharge Thanks for the consult. Call if further issues. 02/14: Continue current regimen and plans I spent minutes with the patient and/or on the patient floor today, greater than?50% of which was spent counseling/coordinating care. Reason for contiued inpatient stay Substantial Risk for: med/psych decompensation
[2022-02-14 10:10] VITALS: BP 130/79; PULSE 55; RESP 16; TEMP 36.6; O2SAT 97
[2022-02-14 20:00] VITALS: BP 121/72; PULSE 61; RESP 18; TEMP 36.7; O2SAT 97
[2022-02-15 06:00] VITALS: BP 139/70; PULSE 59; RESP 18; TEMP 36.6; O2SAT 98
[2022-02-15] MEDS: Acetaminophen 325 MG TABLET 650 MG PO ×2 (09:14→22:05)
[2022-02-15] MEDS: Gabapentin 600 MG TABLET PO ×3 (09:14→22:05)
[2022-02-15] MEDS: hydrOXYzine HCL 25 MG TABLET PO (09:14)
[2022-02-15] MEDS: Nicotine 21 MG PATCH.TD24 TRANSDERMA (09:14)
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
[2022-02-16 06:00] VITALS: BP 134/90; PULSE 95; RESP 18; TEMP 36.7; O2SAT 96
[2022-02-16] MEDS: hydrOXYzine HCL 25 MG TABLET PO ×3 (09:06→20:25)
[2022-02-16] MEDS: Gabapentin 600 MG TABLET PO ×3 (09:06→20:26)
[2022-02-16] MEDS: Nicotine 21 MG PATCH.TD24 TRANSDERMA (09:06)
--- NOTE | 2022-02-16 09:09 | P.PNPSI_ITS ---
Subjective Subjective Date of Service: 02/16/22 Reason For Visit: PARANOIA Agitation Subjective Notes: 3 Day Interim History: Today, pt salma declined to speak with this principal technical writer stating I only need housing. Pt seen self dialoguing, threw coffee cup at wall, upset about the Government and very suspicious about staff. He continues to decline medications. Medication Compliance: No Side effects from medications: No Attending Groups: No Review of Systems Review of Systems denies trauma to scrotum Denies scrotal pain denies fever chills Yes all other systems are reviewed and are negative Mental Status Exam Mental Status Exam Narrative: Appearance: casually groomed, fair hygiene in NAD Behavior:guarded and irritable psychomotor: no agitation or retardation noted Speech:clear, normal rate/rhythm/volume, spontaneous Thought process:disorganized. Thought content:paranoid Mood: fine Affect: irritable and guarded SI:denies HI:denies VH/AH:internally preoccupied, self dialoguing. Delusions:paranoid delusions Insight/judgment:poor x 2. Memory/cog: alert, not oriented to situation Diagnostics Vital Signs (24Hr): Vital Signs - 24 hr 02/17/22 09:45 02/17/22 20:10 Temperature 97.0 F 97.7 F Pulse Rate 67 65 Respiratory Rate 18 18 Blood Pressure 128/83 120/85 Pulse Oximetry 97 95 Oxygen Delivery Method Room Air Room Air BMI result Body Mass Index 21.4 Labs Results: 02/09/22 12:57 02/10/22 08:32 Medications Medications Current Medications Acetaminophen (Acetaminophen 325 Mg Tablet) 650 mg PO Q6H PRN PRN Reason: Headache/Pain Mild Scale (1-3) Last Admin: 02/15/22 22:05 Dose: 650 mg Al Hydroxide/Mg Hydroxide (Magnesium Hydrox/Alum Hydrox 30 Ml Oral.Susp) 30 ml PO Q6H PRN PRN Reason: Heartburn/Nausea Aripiprazole (Aripiprazole 5 Mg Tablet) 5 mg PO DAILY [facility] Last Admin: 02/17/22 09:46 Dose: Not Given Gabapentin (Gabapentin 600 Mg Tablet) 600 mg PO TID [facility] Last Admin: 02/17/22 20:12 Dose: 600 mg Hydroxyzine HCl (Hydroxyzine Hcl 25 Mg Tablet) 25 mg PO Q6H PRN PRN Reason: anxiety/restlessness Last Admin: 02/17/22 20:12 Dose: 25 mg Magnesium Hydroxide (Milk Of Magnesia 30 Ml Oral.Susp) 30 ml PO DAILY PRN PRN Reason: Constipation Nicotine (Nicotine 21 Mg Patch.Td24) 21 mg TRANSDERMA DAILY [facility] Last Admin: 02/17/22 09:44 Dose: 21 mg Risperidone (Risperidone 0.5 Mg Tablet) 0.5 mg PO Q4H PRN PRN Reason: Psychosis Last Admin: 02/11/22 17:08 Dose: 0.5 mg Trazodone HCl (Trazodone Hcl 50 Mg Tablet) 50 mg PO BEDTIME PRN PRN Reason: Insomnia Allergies Allergies Allergy/AdvReac Type Severity Reaction Status Date / Time No Known Allergies Allergy Verified 02/09/22 10:47 Assessment & Plan Assessment & Plan (1) Schizoaffective disorder, bipolar type: Status: Acute Code(s): F25.0 - Schizoaffective disorder, bipolar type Plan 02/15 pt refusing medications, paranoid, threatening staff. 02/16 continue current tx. I spent minutes with the patient and/or on the patient floor today, greater than?50% of which was spent counseling/coordinating care. Reason for contiued inpatient stay Substantial Risk for: harm to others and inability to function
[2022-02-16 18:00] VITALS: BP 158/76; PULSE 72; RESP 18; TEMP 36.6; O2SAT 96
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
[2022-02-17] MEDS: Nicotine 21 MG PATCH.TD24 TRANSDERMA (09:44)
[2022-02-17] MEDS: Gabapentin 600 MG TABLET PO ×3 (09:44→20:12)
[2022-02-17 09:45] VITALS: BP 128/83; PULSE 67; RESP 18; TEMP 36.1; O2SAT 97
[2022-02-17] MEDS: hydrOXYzine HCL 25 MG TABLET PO ×2 (10:16→20:12)
[2022-02-17 20:10] VITALS: BP 120/85; PULSE 65; RESP 18; TEMP 36.5; O2SAT 95
[2022-02-18 07:00] VITALS: BMI 22.1
[2022-02-18 09:30] VITALS: BP 127/73; PULSE 59; RESP 16; TEMP 36.3; O2SAT 98
[2022-02-18] MEDS: Gabapentin 600 MG TABLET PO ×2 (09:34→15:24)
[2022-02-18] MEDS: Nicotine 21 MG PATCH.TD24 TRANSDERMA (09:45)
[2022-02-18] MEDS: hydrOXYzine HCL 25 MG TABLET PO (15:24)
--- NOTE | 2022-02-18 15:39 | PM.PSYDC ---
DS: Providers Provider Date of Service: 02/18/22 Date of admission: 02/09/22 22:34 Primary care physician: Rebeca Hassan NP Consults: 02/10/22 16:34 Consult to Hospitalist Routine Consulting Provider: Hospitalist Reason For Exam: c/o testicular pain poor hx DS: Diagnosis Discharge Diagnosis (1) Schizoaffective disorder, bipolar type: Status: Acute DS: Medications Discharge Medications Home Medications: Home Medications Medication Instructions Recorded Confirmed hydroxyzine HCl 50 mg tablet 1 tab PO BID 02/09/22 02/09/22 Previous Rx's Medication Instructions Recorded gabapentin 600 mg tablet 600 mg PO TID #90 tabs 02/18/22 Mental Status Exam Mental Status Exam Narrative: Appearance: casually groomed, fair hygiene in NAD Behavior:guarded and irritable psychomotor: no agitation or retardation noted Speech:clear, normal rate/rhythm/volume, spontaneous Thought process:disorganized. Thought content:paranoid Mood: fine Affect: irritable and guarded SI:denies HI:denies VH/AH:internally preoccupied, self dialoguing. Delusions:paranoid delusions Insight/judgment:poor x 2. Memory/cog: alert, not oriented to situation DS: Summary Hospital Course Hospital Course: HPI: Subjective Notes: [place] Warning and Conditional Voluntary Guardianship: No Narrative: The patient allegedly had initially gone to [facility] and then was reportedly sent to the [facility].? He presented to the [facility] with reported homicidal thoughts reportedly no clear plan related to multiple paranoid concerns about the government and other people and that somehow he was being harmed.? He has had concerns reportedly about being poisoned things injected into his body.? The patient has reportedly been on hydroxyzine 50 mg twice a day as needed for anxiety gabapentin 600 t.i.d. reportedly for back pain.? He states he is treated at [facility] he reportedly has not been on any antipsychotic medication for an extended period of time and none is on med reconciliation.? Patient states he does not take any crazy medication.? The patient gives a chaotic and disorganized history he reportedly has been diagnosed with the schizophrenia he states he is homeless and has been going from 1 place to another including reportedly [facility] and [facility].? He states he cannot take it anymore rambling and rapid discourse about somehow people harming him in different ways doing things to his body and has felt he may need to protect himself and reportedly made statements that someone the government is trying to make him hurt someone.? Patient denied a history of violence. Past Psychiatric History: History of multiple reported hospitalizations for paranoia questionable history of jeremy and psychosis.? Unclear regarding treatment. Medical Evaluation Reviewed: Yes Patient does have reportedly past head injuries.? Complains of being damage to his private parts and testicles but cannot give any coherent history or symptoms.? Was reportedly examined in the emergency room and nothing noted HOSPITAL COURSE On the unit, Pt was admitted on a CV and placed on 15 minutes checks for safety. Pt presented as paranoid initially towards Blacks, Jews and Hispanics, but quickly became very paranoid and suspicious towards peers and staff on the unit. He made threats to harm others on the unit, but did not engage in any physical aggression towards self or others. Pt known to this senior writer through previous admission at different hospital. He declined taking any medications. He did not think he has a mental illness. Multiple efforts to reach his mother and sister were made to gather further collateral information in terms of safety assessment but unable to reach them. Per history pt usually self presents to the hospital asking to be admitted for short period of time to psychiatric unit. He rarely will agree to take psychotropic medications. He usually resides at shelters. He is known to friends of the homeless. Per records, no history of violence. He signed a 3 day notice. No enough collateral information to support imminent harm to self or others. On the unit, despite ongoing paranoid delusions and paranoid towards staff here he did not engage in any physical altercation nor required chemical or mechanical restraint. No evidence of aggression towards self or others. Therefore, he was discharged once 3 day notice was up. Appointments made with [facility]. On the unit, pt sleeping and eating well. Status at Discharge Cognitive/behavioral status at discharge: Pt presents as calmer, still with paranoid delusions, and AH. No SI/HI. No signs of aggression towards self or others. He is future oriented in that he wants to follow up with PCP. Functional status at discharge: independent ambulation Overall status at discharge: patient is progressing back to baseline Time Spent with Patient Time attestation: Total time spent providing and/or coordinating discharge services: Discharge Plan Discharge Anticipated Discharge Date/Time: 02/18/22 09:34 Patient Disposition: Home Health Service Discharge Diagnosis: Schizophrenia Referrals: Rebeca Hassan NP [Primary Care Provider] - 1 Week Discharge Medications: New gabapentin 600 mg Tablet 600 mg PO TID Qty: 90 0RF Continued hydroxyzine HCl 50 mg tablet 1 tab PO BID Discontinued gabapentin 600 mg tablet 1 tab PO TID Discharge Orders: Discharge Order (Routine); Ordered 02/18/22 Ordered By: Jessica Chong Diet: Regular diet Activity on Discharge: As tolerated Stand Alone Forms: Patient Portal Discharge page, Community Support Care Plan Goals: 1. Maintain mood 2. No aggression towards self or others 3. No SI/HI Health Concerns: Follow up with PCP Plan of Treatment: 1. Take medications as prescribed 2. Go to nearest ED or call 911 in event of emergency Assessment: Pt with irritable affect, but less threatening. He denies SI/HI. No insight into psychosis and delusions. No aggression towards self or others. Based on hx, pt usually self present to hospital when exacerbation of delusions and psychosis, no hx of aggression towards others despite homicidal ideation initially when admitted. Discharge Date/Time: 02/18/22 16:00
== END 2022-02-18 16:00 | disposition home health service (06) | DRG 885 ==
LOC: HO.ED 17:41 → HO.PADLT16 22:48
PROVIDERS: Admitting Provider Psychiatry & Neurology Psychiatry; Emergency Provider Emergency Medicine; PCP Nurse Practitioner Family; Visit Provider Psychiatry & Neurology Psychiatry
DX: F25.0 Schizoaffective disorder, bipolar type (principal); R45.850 Homicidal ideations; Z59.02 Unsheltered homelessness; N43.3 Hydrocele, unspecified; F17.210 Nicotine dependence, cigarettes, uncomplicated; Z71.6 Tobacco abuse counseling; Z20.822 Contact with and (suspected) exposure to COVID-19; Z79.899 Other long term (current) drug therapy
CPT/HCPCS: 36415; 80048; 80053; 80061; 80076; 80307; 82077; 82607; 82746; 84443; 85025; 87635; 93005; 99285